=== PATIENT | male | born 1970 | race Caucasian/White ===

== ENCOUNTER 2019-07-13 13:15 | Emergency (ER) | payer SELFPAY ==
--- NOTE | 2019-07-13 13:52 | ER Document Report ---
ED General - General Chief Complaint: Testicular Pain Stated Complaint: TESTICLE PAIN Time Seen by Provider: 07/13/19 13:46 Notes: 48-year-old male presents with intermittent right testicle pain radiating to his buttock/back which began yesterday. It is not worse with position and is not constant. His testicle seems normal to him when he feels it. No masses no swelling. He does have some aches in his inguinal region. No penile discharge. History of committee and gonorrhea years ago. No recent trauma no hernias. Denies hematuria no fevers. He had sex with his partner about a month ago without a condom but has not had sex since. TRAVEL OUTSIDE OF THE [place] IN LAST 30 DAYS: No - Related Data Allergies/Adverse Reactions: brussel sprouts Allergy (Uncoded 07/13/19 13:16) Past Medical History - Social History Smoking Status: Current Every Day Smoker Family History: None Review of Systems - Review of Systems Notes: REVIEW OF SYSTEMS GEN: Denies fever, chills, weight loss ENT: Denies sore throat, nasal discharge, ear pain EYES: Denies blurry vision, eye pain, discharge CV: Denies chest pain, palpitations, edema RESP: Denies cough, shortness of breath, wheezing GI: Denies abdominal pain, nausea, vomiting, diarrhea MSK: Denies joint pain/swelling, edema, SKIN: Denies rash, skin lesions LYMPH: Denies swollen glands/lymph nodes NEURO: Denies headache, focal weakness or numbness, dizziness PSYCH: Denies depression, suicidal or homicidal ideation PHYSICAL EXAMINATION General: No acute distress, well-nourished Head: Atraumatic, normocephalic ENT: Mouth normal, oropharynx moist, no exudates or tonsillar enlargement Eyes: Conjunctiva normal, pupils equal, lids normal Neck: No JVD, supple, no guarding CVS: Normal rate, regular rhythm, no murmurs Resp: No resp distress, equal and normal breath sounds bilaterally GI: Nondistended, soft, no tenderness to palpation, no rebound or guarding : Normal penis normal scrotum. Intact cremasteric reflex. Mild right testicle tenderness, lie is slightly horizontal, but mobile and nontender and the scrotum is normal Ext: No deformities, no edema, normal range of motion in upper and lower ext Back: No CVA or midline TTP Skin: No rash, warm Lymphatic: No lymphadeopathy noted Neuro: Awake, alert. Face symmetric. GCS 15. Physical Exam - Vital signs Vitals: Temp Pulse Resp BP Pulse Ox 98.6 F 99 18 127/78 H 97 07/13/19 13:38 07/13/19 13:38 07/13/19 13:38 07/13/19 13:38 07/13/19 13:38 Course - Re-evaluation Re-evalutation: 07/13/19 14:00 Likely STI/epididymoorchitis, no signs of abscess no signs of erosion no signs of toxicity. Differential would include kidney stone. 07/13/19 15:11 Patient's 20 gonorrhea are pending. He is afebrile. His ultrasound does not show torsion. He is been treated with Rocephin and Zithromax. He will be discharged with STD precautions and follow-up with a primary care. I have discussed with the patient there likely diagnosis, aftercare plan, follow- up plans and my usual and customary return precautions. They verbalized understanding of this. - Vital Signs Vital signs: Temp Pulse Resp BP Pulse Ox 98.6 F 99 18 127/78 H 97 07/13/19 13:38 07/13/19 13:38 07/13/19 13:38 07/13/19 13:38 07/13/19 13:38 - Diagnostic Test Radiology reviewed: Pending Discharge - Discharge Clinical Impression: Testicle pain Condition: Good Disposition: HOME, SELF-CARE Instructions: Testicular Pain ([facility]) Additional Instructions: We are treating you for a sexually transmitted infection just in case. Please follow-up with your primary doctor within 1 week. Please wear brief underwear to support your scrotum, and return to the ER for any worsening pain.
[2019-07-13] MEDS ORDERED: AZITHROMYCIN 1 GM SUSP PACKET PO ONE (14:01)
[2019-07-13] MEDS ORDERED: CEFTRIAXONE INJ 250 MG VIAL IM ONE (14:01)
[2019-07-13] MEDS ORDERED: AZITHROMYCIN 250 MG TABLET PO ONE (14:22)
--- NOTE | 2019-07-13 15:16 | RADIOLOGY REPORT (SQ) ---
EXAM DESCRIPTION: U/S SCROTUM W/DOPPLER COMPLETED DATE/TIME: 07/13/2019 3:02 pm REASON FOR STUDY: r testicle pain COMPARISON: None. TECHNIQUE: Static and realtime jaffe scale imaging of the scrotum and testes. Selected color Doppler and spectral images recorded to document blood flow. LIMITATIONS: None. FINDINGS: RIGHT: TESTICLE: Normal size. Normal echotexture. Normal blood flow. No mass. EPIDIDYMIS: Normal. HYDROCELE OR VARICOCELE: No. HERNIA OR EXTRA-TESTICULAR MASS: No. OTHER: No other significant finding. LEFT: TESTICLE: Normal size. Normal echotexture. Normal blood flow. No mass. EPIDIDYMIS: Normal. HYDROCELE OR VARICOCELE: No. HERNIA OR EXTRA-TESTICULAR MASS: No. OTHER: No other significant finding. IMPRESSION: NORMAL SCROTAL ULTRASOUND. NO EVIDENCE OF TESTICULAR MASS OR TORSION. TECHNICAL DOCUMENTATION: JOB ID: [id number] [employer]- All Rights Reserved Reading location - IP/workstation name: [email or web address]
[2019-07-13 15:31] VITALS: BP 133/80
[2019-07-13 15:40] LABS: CHLAM PCR NOT DETECTED (NOT DETECT)
== END 2019-07-13 15:43 | disposition home or self-care (01) ==
LOC: ER 13:15
DX: N50.811 Right testicular pain (principal); Z20.2 Contact with and (suspected) exposure to infections with a predominantly sexual mode of transmission; F17.200 Nicotine dependence, unspecified, uncomplicated
CPT/HCPCS: 99284; 96374; 87491; 87591; 76870; 93976; J0696

== ENCOUNTER 2019-08-01 23:00 | Inpatient (IN) | payer SELFPAY ==
[2019-08-02] MEDS ORDERED: FENTANYL CITRATE INJ/PF 100 MCG/2 ML AMPUL IV ONE ×3 (04:03→09:24)
[2019-08-02 05:00] LABS: ABSOLUTE BASOPHILS # (AUTO) 0.1 10^3/uL (0.0-0.2); ABSOLUTE EOSINOPHILS # (AUTO) 0.2 10^3/uL (0.0-0.6); ABSOLUTE LYMPHOCYTES (AUTO) 2.2 10^3/uL (0.5-4.7); ABSOLUTE MONOCYTES (AUTO) 1.1 10^3/uL (0.1-1.4); ABSOLUTE NEUT (AUTO) 7.5 10^3/uL (1.7-8.2); BASOPHILS % (AUTO) 0.5 % (0-2); EOSINOPHILS % (AUTO) 1.7 % (0-6); HEMATOCRIT 41.6 % (37.9-51.0); HEMOGLOBIN 14.2 g/dL (13.5-17.0); LYMPHOCYTES % (AUTO) 20.1 % (13-45); MEAN CORPUSCULAR HEMOGLOBIN 30.6 pg (27.0-33.4); MEAN CORPUSCULAR HGB CONC 34.2 g/dL (32.0-36.0); MEAN CORPUSCULAR VOLUME 90 fl (80-97); MONOCYTES % (AUTO) 9.8 % (3-13); PLATELET COUNT 167 10^3/uL (150-450); RED BLOOD COUNT 4.64 10^6/uL (4.35-5.55); RED CELL DISTRIBUTION WIDTH 13.7 % (11.5-14.0); SEGMENTED NEUTROPHILS % (AUTO) 67.9 % (42-78); TOTAL CELLS COUNTED % (AUTO) 100 %; WHITE BLOOD COUNT 11.1 10^3/uL (4.0-10.5)
[2019-08-02 05:19] LABS: ALBUMIN 4.2 g/dL (3.5-5.0); ALKALINE PHOSPHATASE 59 U/L (38-126); ANION GAP 8 (5-19); ASPARTATE AMINO TRANSFERASE 17 U/L (17-59); BILIRUBIN,DIRECT 0.1 mg/dL (0.0-0.4); BILIRUBIN,TOTAL 0.6 mg/dL (0.2-1.3); BLOOD UREA NITROGEN 14 mg/dL (7-20); CALCIUM 9.5 mg/dL (8.4-10.2); CARBON DIOXIDE 28 mmol/L (22-30); CHLORIDE 103 mmol/L (98-107); GLUCOSE 113 mg/dL (75-110); POTASSIUM 4.2 mmol/L (3.6-5.0); TOTAL PROTEIN 7.3 g/dL (6.3-8.2)
[2019-08-02] MEDS ORDERED: CLINDAMYCIN 600 MG/D5W RTU 600 MG/50 ML RTUPB IV ONE (05:34)
--- NOTE | 2019-08-02 06:59 | ER Document Report ---
ED Extremity Problem, Lower - General TRAVEL OUTSIDE OF THE [place] IN LAST 30 DAYS: No <DIANDRA ANDERS - Last Filed: 08/02/19 07:58> <OBDULIOISSAC - Last Filed: 08/02/19 10:06> - General Chief Complaint: Leg Pain Stated Complaint: LEFT LEG SWELLING Time Seen by Provider: 08/02/19 03:53 Notes: Patient is a 48-year-old male presents to the emergency department with left lower extremity redness, swelling, pain. Patient voices he has generalized swelling and redness noted to the left lower extremity for the last 2 days. Patient also complaining of generalized left calf pain. States it hurts more when he flexes and extends his left ankle. Patient's denying any injury to his left lower extremity. Past medical history: None medications: None Allergies: None (DIANDRA ANDERS) - Related Data Allergies/Adverse Reactions: brussel sprouts Allergy (Uncoded 07/13/19 13:16) Past Medical History - General Information source: Patient - Social History Smoking Status: Current Every Day Smoker Chew tobacco use (# tins/day): No Frequency of alcohol use: Social Drug Abuse: Marijuana Family History: None Patient has suicidal ideation: No Patient has homicidal ideation: No <DIANDRA ANDERS - Last Filed: 08/02/19 07:58> Review of Systems - Review of Systems Constitutional: denies: Fever EENT: No symptoms reported Cardiovascular: No symptoms reported Respiratory: No symptoms reported Gastrointestinal: No symptoms reported Genitourinary: No symptoms reported Male Genitourinary: No symptoms reported Musculoskeletal: See HPI Skin: See HPI Hematologic/Lymphatic: denies: Blood clots Neurological/Psychological: No symptoms reported <DIANDRA ANDERS - Last Filed: 08/02/19 07:58> Physical Exam <DIANDRA ANDERS - Last Filed: 08/02/19 07:58> - Vital signs Vitals: Temp Pulse Resp BP Pulse Ox 98.8 F 97 17 137/84 H 96 08/01/19 23:26 08/01/19 23:26 08/01/19 23:26 08/01/19 23:26 08/01/19 23:26 - Notes Notes: GENERAL: Alert, interacts well. No acute distress. HEAD: Normocephalic, atraumatic. EYES: Pupils equal, round, and reactive to light. Extraocular movements intact. ENT: Oral mucosa moist, tongue midline. NECK: Full range of motion. Supple. Trachea midline. LUNGS: Clear to auscultation bilaterally, no wheezes, rales, or rhonchi. No respiratory distress. HEART: Regular rate and rhythm. No murmur ABDOMEN: Soft, non-tender. Non-distended. Bowel sounds present in all 4 quadrants. EXTREMITIES: Moves all 4 extremities spontaneously. normal radial and dorsalis pedis pulses bilaterally. No cyanosis. Generalized swelling, erythema noted left lower extremity. Significant pain upon palpation left calf. BACK: no cervical, thoracic, lumbar midline tenderness. No saddle anesthesia, normal distal neurovascular exam. NEUROLOGICAL: Alert and oriented x3. Normal speech. cranial nerves II through XII grossly intact PSYCH: Normal affect, normal mood. SKIN: Warm, dry, normal turgor. Multiple superficial abrasions noted left lower extremity, erythema noted left lower acuna and ankle, noncircumferential. (DIANDRA ANDERS) Course - Laboratory Result Diagrams: 08/02/19 04:40 08/02/19 04:40 <DIANDRA ANDERS - Last Filed: 08/02/19 07:58> - Laboratory Result Diagrams: 08/02/19 04:40 08/02/19 04:40 <ISSAC MAK - Last Filed: 08/02/19 10:06> - Re-evaluation Re-evalutation: 08/02/19 06:58 I discussed with patient at length I do feel as though this is infectious nature. I discussed use of antibiotics. Based on patient's complaint of generalized calf pain I have discussed venous Doppler. I voiced to patient we do not have access to the venous Doppler until 8 AM. I have discussed drawing routine blood in order to check for generalized infection, treated with IV antibiotics and awaiting results of venous Doppler. Patient agrees to treatment plan. 08/02/19 07:58 Pt. care and report transferred Tommie Ortiz PA-C for continued care. (DIANDRA RIZO) 08/02/19 10:04 I accepted the patient from just Nancy Woolbright, PA-C. Ultrasound showed a left lower extremity proximal DVT of the common femoral vein, popliteal vein, and the PT V. I called [facility] CREDIT REVIEW ANALYST, who accepted the patient for anticoagulation for full admission. I briefly spoke with Dr. Danielle Bailey, casting operator helper, who stated that outpatient therapy would be appropriate if the patient could afford the medications, but if the patient was not able to then it is reasonable to admit him for anticoagulation. (ISSAC MAK) - Vital Signs Vital signs: Temp Pulse Resp BP Pulse Ox 97.9 F 63 16 140/73 H 99 08/02/19 06:54 08/02/19 08:44 08/02/19 08:44 08/02/19 08:44 08/02/19 08:44 - Laboratory Laboratory results interpreted by me: 08/02/19 08/02/19 04:40 04:40 WBC 11.1 H Glucose 113 H Discharge <DIANDRA ANDERS - Last Filed: 08/02/19 07:58> - Discharge Admitting Provider: Dimitris (Hospitalist) Unit Admitted: Medical Floor <ISSAC MAK - Last Filed: 08/02/19 10:06> - Discharge Clinical Impression: Dvt femoral (deep venous thrombosis) Qualifiers: Chronicity: acute Laterality: left Qualified Code(s): I82.412 - Acute embolism and thrombosis of left femoral vein DVT, popliteal, acute Qualifiers: Laterality: left Qualified Code(s): I82.432 - Acute embolism and thrombosis of left popliteal vein Condition: Stable Disposition: ADMITTED INPATIENT
--- NOTE | 2019-08-02 07:18 | RADIOLOGY REPORT (SQ) ---
EXAM DESCRIPTION: Left tib-fib RadLex: XR TIBIA FIBULA 2 VIEWS Views: 2 CLINICAL HISTORY: 48 years Male, pain/swelling COMPARISON: None. FINDINGS: Negative for acute fracture, dislocation, or radiopaque foreign body. No lytic bone changes or periosteal reaction. No soft tissue air. IMPRESSION: 1. No acute findings.
[2019-08-02] MEDS ORDERED: MAG HYDROX/AL HYDROX/SIMETH SUSP 30 ML UDCUP PO PRN (10:21)
[2019-08-02] MEDS ORDERED: HYDROMORPHONE HCL INJ/PF 2 MG/ML AMPULE IV ONE (10:21)
[2019-08-02] MEDS ORDERED: ONDANSETRON HCL INJ/PF 4 MG/2 ML SDV IV PRN (10:21)
--- NOTE | 2019-08-02 10:22 | RADIOLOGY REPORT (SQ) ---
EXAM DESCRIPTION: VENOUS UNILATERAL LOWER COMPLETED DATE/TIME: 08/02/2019 9:55 am REASON FOR STUDY: left calf pain/swelling COMPARISON: None. TECHNIQUE: Dynamic and static jaffe scale and color images acquired of the left leg venous system. Se lected spectral images acquired with additional compression and augmentation maneuvers. The contralat eral common femoral vein and saphenofemoral junction were also imaged. Images stored on PACS. LIMITATIONS: None. FINDINGS: LEFT COMMON FEMORAL: Normal phasicity, compression and augmentation. No visualized echogen ic material on jaffe scale. No defects on color images. LEFT FEMORAL: Absence of normal compressibility and augmentation in the mid and distal femoral vein. Echogenic material within the lumen of the mid and distal left femoral vein. LEFT POPLITEAL: Lack of compressibility and lack of augmentation. Echogenic material within the lum en of the left popliteal vein noted. No defects on color images. LEFT CALF VESSELS: Lack of compressibility and lack augmented. Echogenic material within the lumen o f the posterior tibial vein. GSV and SSV :Lack of compressibility of the SSV. Echogenic material noted within the SSV ANY DEEP VENOUS INSUFFICIENCY: Not evaluated. ANY EVIDENCE OF POPLITEAL CYST: No. OTHER: No other significant finding. RIGHT COMMON FEMORAL VEIN AND SAPHENOFEMORAL JUNCTION: Normal phasicity, compression and augmentation. No visualized echogenic material on jaffe scale. No de fects on color images. IMPRESSION: Evidence of acute deep vein thrombosis from the mid femoral vein to the posterior tibial vein. Evidence a superficial vein thrombosis left lower leg. COMMENT: The report was called to the LAZ Leija in the emergency room. TECHNICAL DOCUMENTATION: JOB ID: [id number] [employer]- All Rights Reserved Reading location - IP/workstation name: [email or web address]
[2019-08-02] MEDS ORDERED: HEPARIN SOD (PORCINE) 1,000 UNIT/ML 10 ML VIAL IV ONE (10:24)
--- NOTE | 2019-08-02 10:33 | PDOC H&P ---
History of Present Illness Admission Date/PCP: 08/02/2019 No primary care Patient complains of: Left lower leg pain History of Present Illness: RIC BANEGAS is a 48 year old male who presented to the ER with complaint of left lower extremity redness and swelling associated pain. Patient is noted this swelling been present for the last 2 to 3 days. Patient states it hurts more when he flexes or extends his left ankle showing a positive Homans sign. Patient had no treatment prior to arrival all activity is aggravating factor Past Medical History Medical History: None Past Surgical History Past Surgical History: Reports: None Social History Information Source: Patient Lives with: Family Smoking Status: Current Every Day Smoker Frequency of Alcohol Use: Occasional Hx Recreational Drug Use: Yes Drugs: Marijuana Hx Prescription Drug Abuse: No - Advance Directive Resuscitation Status: Full Code Family History Family History: CAD, CVA, DM, Hypertension Parental Family History Reviewed: Yes Children Family History Reviewed: Yes Sibling(s) Family History Reviewed.: Yes Medication/Allergy Allergies/Adverse Reactions: brussel sprouts Allergy (Uncoded 07/13/19 13:16) Review of Systems Constitutional: ABSENT: chills, fever(s), headache(s), weight gain, weight loss Eyes: ABSENT: visual disturbances Ears: ABSENT: hearing changes Cardiovascular: ABSENT: chest pain, dyspnea on exertion, edema, orthropnea, palpitations Respiratory: ABSENT: cough, hemoptysis Gastrointestinal: ABSENT: abdominal pain, constipation, diarrhea, hematemesis, hematochezia, nausea, vomiting Genitourinary: ABSENT: dysuria, hematuria Musculoskeletal: PRESENT: other - Right lower extremity pain, swelling, redness. ABSENT: joint swelling Integumentary: ABSENT: rash, wounds Neurological: ABSENT: abnormal gait, abnormal speech, confusion, dizziness, focal weakness, syncope Psychiatric: ABSENT: anxiety, depression, homidical ideation, suicidal ideation Endocrine: ABSENT: cold intolerance, heat intolerance, polydipsia, polyuria Hematologic/Lymphatic: ABSENT: easy bleeding, easy bruising Physical Exam Vital Signs: Temp Pulse Resp BP Pulse Ox 97.9 F 63 16 140/73 H 99 08/02/19 06:54 08/02/19 08:44 08/02/19 08:44 08/02/19 08:44 08/02/19 08:44 Intake & Output 08/01/19 08/02/19 08/03/19 06:59 06:59 06:59 Intake Total 50 Balance 50 Weight 97.522 kg General appearance: PRESENT: no acute distress, well-developed, well-nourished Head exam: PRESENT: atraumatic, normocephalic Eye exam: PRESENT: conjunctiva pink, EOMI, PERRLA. ABSENT: scleral icterus Ear exam: PRESENT: normal external ear exam Mouth exam: PRESENT: moist, tongue midline Neck exam: ABSENT: carotid bruit, JVD, lymphadenopathy, thyromegaly Respiratory exam: PRESENT: clear to auscultation hussain. ABSENT: rales, rhonchi, wheezes Cardiovascular exam: PRESENT: RRR. ABSENT: diastolic murmur, rubs, systolic murmur Pulses: PRESENT: normal dorsalis pedis pul Vascular exam: PRESENT: normal capillary refill GI/Abdominal exam: PRESENT: normal bowel sounds, soft. ABSENT: distended, guarding, mass, organolmegaly, rebound, tenderness Rectal exam: PRESENT: deferred Extremities exam: PRESENT: calf tenderness - Left lower extremity pain, swelling, redness, full ROM, other. ABSENT: clubbing, pedal edema Neurological exam: PRESENT: alert, awake, oriented to person, oriented to place, oriented to time, oriented to situation, CN II-XII grossly intact. ABSENT: motor sensory deficit Psychiatric exam: PRESENT: appropriate affect, normal mood. ABSENT: homicidal ideation, suicidal ideation Skin exam: PRESENT: dry, intact, warm. ABSENT: cyanosis, rash Results Laboratory Results: 08/02/19 04:40 08/02/19 04:40 08/02/19 08/02/19 04:40 04:40 WBC 11.1 H RBC 4.64 Hgb 14.2 Hct 41.6 MCV 90 MCH 30.6 MCHC 34.2 RDW 13.7 Plt Count 167 Seg Neutrophils % 67.9 Sodium 138.9 Potassium 4.2 Chloride 103 Carbon Dioxide 28 Anion Gap 8 BUN 14 Creatinine 0.88 Est GFR ( Amer) > 60 Glucose 113 H Calcium 9.5 Total Bilirubin 0.6 AST 17 Alkaline Phosphatase 59 Total Protein 7.3 Albumin 4.2 Impressions: Venous Doppler Study 08/02/19 04:03 IMPRESSION: Evidence of acute deep vein thrombosis from the mid femoral vein to the posterior tibial vein. Evidence a superficial vein thrombosis left lower leg. Tibia/Fibula X-Ray 08/02/19 05:33 IMPRESSION: 1. No acute findings. Assessment and Plan - Diagnosis (1) Dvt femoral (deep venous thrombosis) Qualifiers: Chronicity: acute Laterality: left Qualified Code(s): I82.412 - Acute embolism and thrombosis of left femoral vein Is this a current diagnosis for this admission?: Yes Plan: 08/02/2019-at this time admit to medical surgical floor. Heparin drip and start Coumadin 10 mg p.o. daily. Will obtain a INR daily until patient has a therapeutic Coumadin value. At which time we will stop heparin and place patient on Coumadin for home as well as pain control. (2) Pain Is this a current diagnosis for this admission?: Yes Plan: 08/02/2019-Dilaudid 1 mg IV every 3 hours as needed and Percocet 5 mg 1 p.o. every 4 hours PRN pain (3) Tobacco abuse Is this a current diagnosis for this admission?: Yes Plan: Continue to educate about the positive benefits of tobacco cessation (4) Marijuana abuse Is this a current diagnosis for this admission?: Yes Plan: 08/02/2019-continue to educate about the positive benefits of marijuana cessation - Time Time Spent with patient: 35 or more minutes
[2019-08-02 10:54] LABS: INTERNATIONAL RATION (INR) 1.07
[2019-08-02 10:55] LABS: PARTIAL THROMBOPLASTIN TIME 30.1 SEC (23.5-35.8)
[2019-08-02] MEDS: OXYCODONE-ACETAMINOPHEN 5-325 MG TABLET PO PRN (11:13)
[2019-08-02] MEDS: HEPARIN SODIUM,PORCINE/D5W 25,000 UNIT/250 ML RTUINJ IV PRN ×2 (11:30→20:15)
[2019-08-02 11:42] LABS: ABSOLUTE BASOPHILS # (AUTO) 0.1 10^3/uL (0.0-0.2); ABSOLUTE EOSINOPHILS # (AUTO) 0.2 10^3/uL (0.0-0.6); ABSOLUTE LYMPHOCYTES (AUTO) 1.9 10^3/uL (0.5-4.7); ABSOLUTE MONOCYTES (AUTO) 0.8 10^3/uL (0.1-1.4); ABSOLUTE NEUT (AUTO) 8.6 10^3/uL (1.7-8.2); BASOPHILS % (AUTO) 0.7 % (0-2); EOSINOPHILS % (AUTO) 1.3 % (0-6); HEMATOCRIT 41.2 % (37.9-51.0); LYMPHOCYTES % (AUTO) 16.4 % (13-45); MEAN CORPUSCULAR HEMOGLOBIN 30.5 pg (27.0-33.4); MEAN CORPUSCULAR VOLUME 90 fl (80-97); MONOCYTES % (AUTO) 6.9 % (3-13); PLATELET COUNT 161 10^3/uL (150-450); RED BLOOD COUNT 4.59 10^6/uL (4.35-5.55); SEGMENTED NEUTROPHILS % (AUTO) 74.7 % (42-78); TOTAL CELLS COUNTED % (AUTO) 100 %; WHITE BLOOD COUNT 11.6 10^3/uL (4.0-10.5)
[2019-08-02] MEDS: HYDROMORPHONE HCL INJ/PF 2 MG/ML AMPULE IV PRN ×2 (16:50→20:15)
[2019-08-02] MEDS: ACETAMINOPHEN 325 MG TABLET PO PRN (18:40)
[2019-08-02] MEDS ORDERED: WARFARIN SODIUM 5 MG TABLET PO SCH (22:00)
[2019-08-03] MEDS: HYDROMORPHONE HCL INJ/PF 2 MG/ML AMPULE IV PRN ×5 (00:38→19:50)
[2019-08-03] MEDS: HEPARIN SODIUM,PORCINE/D5W 25,000 UNIT/250 ML RTUINJ IV PRN ×4 (02:37→16:35)
[2019-08-03] MEDS: OXYCODONE-ACETAMINOPHEN 5-325 MG TABLET PO PRN ×3 (02:41→12:31)
[2019-08-03 06:09] LABS: ABSOLUTE BASOPHILS # (AUTO) 0.1 10^3/uL (0.0-0.2); ABSOLUTE EOSINOPHILS # (AUTO) 0.2 10^3/uL (0.0-0.6); ABSOLUTE LYMPHOCYTES (AUTO) 1.9 10^3/uL (0.5-4.7); ABSOLUTE MONOCYTES (AUTO) 1.2 10^3/uL (0.1-1.4); ABSOLUTE NEUT (AUTO) 7.8 10^3/uL (1.7-8.2); BASOPHILS % (AUTO) 0.8 % (0-2); EOSINOPHILS % (AUTO) 2.2 % (0-6); HEMATOCRIT 40.4 % (37.9-51.0); HEMOGLOBIN 13.8 g/dL (13.5-17.0); LYMPHOCYTES % (AUTO) 16.8 % (13-45); MEAN CORPUSCULAR HEMOGLOBIN 30.7 pg (27.0-33.4); MEAN CORPUSCULAR HGB CONC 34.1 g/dL (32.0-36.0); MEAN CORPUSCULAR VOLUME 90 fl (80-97); MONOCYTES % (AUTO) 10.3 % (3-13); PLATELET COUNT 182 10^3/uL (150-450); RED BLOOD COUNT 4.49 10^6/uL (4.35-5.55); RED CELL DISTRIBUTION WIDTH 13.7 % (11.5-14.0); SEGMENTED NEUTROPHILS % (AUTO) 69.9 % (42-78); TOTAL CELLS COUNTED % (AUTO) 100 %; WHITE BLOOD COUNT 11.2 10^3/uL (4.0-10.5)
[2019-08-03 06:23] LABS: INTERNATIONAL RATION (INR) 0.99; PROTHROMBIN TIME 13.1 SEC (11.4-15.4)
[2019-08-03 06:24] LABS: PARTIAL THROMBOPLASTIN TIME 54.2 SEC (23.5-35.8)
[2019-08-03 06:30] LABS: ANION GAP 9 (5-19); BLOOD UREA NITROGEN 15 mg/dL (7-20); CALCIUM 8.6 mg/dL (8.4-10.2); CARBON DIOXIDE 27 mmol/L (22-30); CHLORIDE 98 mmol/L (98-107); GLUCOSE 113 mg/dL (75-110); POTASSIUM 4.3 mmol/L (3.6-5.0)
[2019-08-03] MEDS ORDERED: HEPARIN SOD (PORCINE) 1,000 UNIT/ML 10 ML VIAL ONE (06:41)
--- NOTE | 2019-08-03 08:54 | PDOC PROGRESS REPORT ---
Subjective Progress Note for:: 08/03/19 Subjective:: No complaints this a.m. Reason For Visit: LEFT LOWER EXTREMITY DVT Physical Exam Vital Signs: Temp Pulse Resp BP Pulse Ox 98.6 F 93 17 135/69 H 95 08/02/19 20:00 08/02/19 20:00 08/02/19 20:00 08/02/19 20:00 08/02/19 20:00 Intake & Output 08/02/19 08/03/19 08/04/19 06:59 06:59 06:59 Intake Total 1147 Output Total 220 Balance 927 Weight 97.522 kg 96.2 kg General appearance: PRESENT: no acute distress, well-developed, well-nourished Head exam: PRESENT: atraumatic, normocephalic Eye exam: PRESENT: conjunctiva pink, EOMI, PERRLA. ABSENT: scleral icterus Ear exam: PRESENT: normal external ear exam Mouth exam: PRESENT: moist, tongue midline Neck exam: ABSENT: carotid bruit, JVD, lymphadenopathy, thyromegaly Respiratory exam: PRESENT: clear to auscultation hussain. ABSENT: rales, rhonchi, wheezes Cardiovascular exam: PRESENT: RRR. ABSENT: diastolic murmur, rubs, systolic murmur Pulses: PRESENT: normal dorsalis pedis pul Vascular exam: PRESENT: normal capillary refill GI/Abdominal exam: PRESENT: normal bowel sounds, soft. ABSENT: distended, g uarding, mass, organolmegaly, rebound, tenderness Rectal exam: PRESENT: deferred Extremities exam: PRESENT: full ROM, pedal edema - Swelling of the left lower extremity from knee to the ankle and erythema, other. ABSENT: calf tenderness, clubbing Neurological exam: PRESENT: alert, awake, oriented to person, oriented to place, oriented to time, oriented to situation, CN II-XII grossly intact. ABSENT: motor sensory deficit Psychiatric exam: PRESENT: appropriate affect, normal mood. ABSENT: homicidal ideation, suicidal ideation Skin exam: PRESENT: dry, intact, warm. ABSENT: cyanosis, rash Results Laboratory Results: 08/03/19 05:07 08/03/19 05:07 08/02/19 08/03/19 08/03/19 11:26 05:07 05:07 WBC 11.6 H 11.2 H RBC 4.59 4.49 Hgb 14.0 13.8 Hct 41.2 40.4 MCV 90 90 MCH 30.5 30.7 MCHC 34.0 34.1 RDW 14.0 13.7 Plt Count 161 182 Seg Neutrophils % 74.7 69.9 Sodium 134.4 L Potassium 4.3 Chloride 98 Carbon Dioxide 27 Anion Gap 9 BUN 15 Creatinine 0.79 Est GFR ( Amer) > 60 Glucose 113 H Calcium 8.6 Impressions: Venous Doppler Study 08/02/19 04:03 IMPRESSION: Evidence of acute deep vein thrombosis from the mid femoral vein to the posterior tibial vein. Evidence a superficial vein thrombosis left lower leg. Tibia/Fibula X-Ray 08/02/19 05:33 IMPRESSION: 1. No acute findings. Assessment and Plan - Diagnosis (1) Dvt femoral (deep venous thrombosis) Qualifiers: Chronicity: acute Laterality: left Qualified Code(s): I82.412 - Acute embolism and thrombosis of left femoral vein Is this a current diagnosis for this admission?: Yes Plan: 08/02/2019-at this time admit to medical surgical floor. Heparin drip and start Coumadin 10 mg p.o. daily. Will obtain a INR daily until patient has a therapeutic Coumadin value. At which time we will stop heparin and place patient on Coumadin for home as well as pain control. 08/03/2019-continue heparin drip and Coumadin dosing until INR therapeutic (2) Pain Is this a current diagnosis for this admission?: Yes Plan: 08/02/2019-Dilaudid 1 mg IV every 3 hours as needed and Percocet 5 mg 1 p.o. every 4 hours PRN pain 08/03/2019-continue Dilaudid and Percocet. (3) Tobacco abuse Is this a current diagnosis for this admission?: Yes Plan: Continue to educate about the positive benefits of tobacco cessation 08/03/2019-continue education about tobacco cessation (4) Marijuana abuse Is this a current diagnosis for this admission?: Yes Plan: 08/02/2019-continue to educate about the positive benefits of marijuana cessation 08/03/2019-continue education about marijuana cessation - Time Time Spent with patient: 15-24 minutes - Inpatient Certification Based on my medical assessment, after consideration of the patient's co morbidities, presenting symptoms, or acuity I expect that the services needed warrant INPATIENT care.: Yes I certify that my determination is in accordance with my understanding of Medicare's requirements for reasonable and necessary INPATIENT services [42 CFR 412.3e].: Yes Medical Necessity: Other - IV heparin
[2019-08-03 11:19] LABS: APPEARANCE,URINE CLEAR; BILIRUBIN,URINE NEGATIVE (NEGATIVE); COLOR,URINE YELLOW; GLUCOSE, URINE NEGATIVE (NEGATIVE); KETONES,URINE NEGATIVE (NEGATIVE); LEUKOCYTE ESTERASE,URINE NEGATIVE (NEGATIVE); NITRITE,URINE NEGATIVE (NEGATIVE); PROTEIN,URINE NEGATIVE (NEGATIVE); URINE SPECIFIC GRAVITY 1.023
[2019-08-03] MEDS: HEPARIN SOD (PORCINE) 1,000 UNIT/ML 10 ML VIAL IV PRN (14:07)
[2019-08-03] MEDS: LORAZEPAM INJ 2 MG/1 ML VIAL IV PRN ×2 (15:23→19:45)
[2019-08-03] MEDS: WARFARIN SODIUM 7.5 MG TABLET PO SCH (21:56)
[2019-08-04] MEDS: OXYCODONE-ACETAMINOPHEN 5-325 MG TABLET PO PRN ×3 (03:50→23:36)
[2019-08-04] MEDS: HEPARIN SODIUM,PORCINE/D5W 25,000 UNIT/250 ML RTUINJ IV PRN ×2 (05:28→17:52)
[2019-08-04] MEDS: HYDROMORPHONE HCL INJ/PF 2 MG/ML AMPULE IV PRN ×3 (06:39→20:15)
[2019-08-04 07:22] LABS: INTERNATIONAL RATION (INR) 1.03; PROTHROMBIN TIME 13.5 SEC (11.4-15.4)
[2019-08-04] MEDS: LORAZEPAM INJ 2 MG/1 ML VIAL IV PRN ×4 (09:00→23:36)
[2019-08-04] MEDS: HEPARIN SOD (PORCINE) 1,000 UNIT/ML 10 ML VIAL IV PRN (10:51)
--- NOTE | 2019-08-04 16:54 | PDOC PROGRESS REPORT ---
Subjective Progress Note for:: 08/04/19 Subjective:: No adverse events overnight. No new complaints. Vital signs been stable. He said he thinks the swelling is gone down a little bit in his left leg. Eating and drinking without difficulty. Reason For Visit: LEFT LOWER EXTREMITY DVT Physical Exam Vital Signs: Temp Pulse Resp BP Pulse Ox 98.5 F 96 16 140/82 H 95 08/04/19 08:16 08/04/19 08:16 08/03/19 23:17 08/04/19 08:16 08/04/19 08:16 Intake & Output 08/03/19 08/04/19 08/05/19 06:59 06:59 06:59 Intake Total 1147 2110 Output Total 220 1785 Balance 927 325 Weight 96.2 kg 98.6 kg General appearance: PRESENT: no acute distress, cooperative, disheveled Respiratory exam: PRESENT: clear to auscultation hussain, symmetrical, unlabored. ABSENT: accessory muscle use, chest wall tenderness, crackles, prolonged expiratory phas, rhonchi, tachypnea, wheezes Cardiovascular exam: PRESENT: RRR, +S1, +S2 Pulses: PRESENT: normal carotid pulses Vascular exam: PRESENT: normal capillary refill GI/Abdominal exam: PRESENT: normal bowel sounds, soft. ABSENT: distended, guarding, rebound, tenderness Extremities exam: ABSENT: clubbing, pedal edema Musculoskeletal exam: PRESENT: normal inspection. ABSENT: deformity Neurological exam: PRESENT: alert, awake, oriented to person, oriented to place, oriented to time, oriented to situation Psychiatric exam: PRESENT: appropriate affect, normal mood Skin exam: PRESENT: dry, warm Results Laboratory Results: 08/03/19 05:07 08/03/19 05:07 Impressions: Venous Doppler Study 08/02/19 04:03 IMPRESSION: Evidence of acute deep vein thrombosis from the mid femoral vein to the posterior tibial vein. Evidence a superficial vein thrombosis left lower leg. Tibia/Fibula X-Ray 08/02/19 05:33 IMPRESSION: 1. No acute findings. Assessment and Plan - Diagnosis (1) DVT, popliteal, acute Qualifiers: Laterality: left Qualified Code(s): I82.432 - Acute embolism and thrombosis of left popliteal vein Is this a current diagnosis for this admission?: Yes Plan: Because he does not have insurance he cannot afford the Eliquis so we are starting him on Coumadin and have him on a heparin drip until his INR is therap eutic (2) Tobacco abuse Is this a current diagnosis for this admission?: Yes Plan: Strongly encourage cessation - Time Time Spent with patient: 15-24 minutes
[2019-08-04] MEDS: WARFARIN SODIUM 7.5 MG TABLET PO SCH (21:25)
[2019-08-05 04:21] LABS: APPEARANCE,URINE CLEAR; BILIRUBIN,URINE NEGATIVE (NEGATIVE); COLOR,URINE YELLOW; GLUCOSE, URINE NEGATIVE (NEGATIVE); KETONES,URINE NEGATIVE (NEGATIVE); LEUKOCYTE ESTERASE,URINE NEGATIVE (NEGATIVE); NITRITE,URINE NEGATIVE (NEGATIVE); PROTEIN,URINE NEGATIVE (NEGATIVE); URINE SPECIFIC GRAVITY 1.012; UROBILINOGEN,URINE NEGATIVE mg/dL (<2.0)
[2019-08-05] MEDS: HEPARIN SODIUM,PORCINE/D5W 25,000 UNIT/250 ML RTUINJ IV PRN ×2 (04:50→15:59)
[2019-08-05 08:07] LABS: INTERNATIONAL RATION (INR) 1.11; PROTHROMBIN TIME 14.3 SEC (11.4-15.4)
[2019-08-05 08:09] LABS: PARTIAL THROMBOPLASTIN TIME 92.6 SEC (23.5-35.8)
[2019-08-05] MEDS: LORAZEPAM INJ 2 MG/1 ML VIAL IV PRN (08:45)
[2019-08-05] MEDS: HYDROMORPHONE HCL INJ/PF 2 MG/ML AMPULE IV PRN (11:28)
[2019-08-05] MEDS ORDERED: LORAZEPAM INJ 2 MG/1 ML VIAL IV PRN (13:11)
[2019-08-05] MEDS: OXYCODONE-ACETAMINOPHEN 5-325 MG TABLET PO PRN ×3 (13:17→22:05)
--- NOTE | 2019-08-05 17:54 | PDOC PROGRESS REPORT ---
Subjective Progress Note for:: 08/05/19 Subjective:: No adverse events overnight. He is been asking for his pain medication a lot. He has Percocet and Dilaudid ordered. This is strange considering the fact that he is got good perfusion in the foot and that the swelling has gone down his left leg. He is been eating and drinking without difficulty. Reason For Visit: LEFT LOWER EXTREMITY DVT Physical Exam Vital Signs: Temp Pulse Resp BP Pulse Ox 98.8 F 95 18 142/76 H 98 08/05/19 15:34 08/05/19 15:34 08/05/19 15:34 08/05/19 15:34 08/05/19 15:34 Intake & Output 08/04/19 08/05/19 08/06/19 06:59 06:59 06:59 Intake Total 2110 1550 1202 Output Total 1785 1550 700 Balance 325 0 502 Weight 98.6 kg 97.8 kg General appearance: PRESENT: no acute distress, cooperative, disheveled Respiratory exam: PRESENT: clear to auscultation hussain, symmetrical, unlabored. ABSENT: accessory muscle use, chest wall tenderness, crackles, prolonged ex piratory phas, rhonchi, tachypnea, wheezes Cardiovascular exam: PRESENT: RRR, +S1, +S2 Pulses: PRESENT: normal carotid pulses Vascular exam: PRESENT: normal capillary refill GI/Abdominal exam: PRESENT: normal bowel sounds, soft. ABSENT: distended, guarding, rebound, tenderness Extremities exam: ABSENT: clubbing, pedal edema Musculoskeletal exam: PRESENT: normal inspection. ABSENT: deformity Neurological exam: PRESENT: alert, awake, oriented to person, oriented to place, oriented to time, oriented to situation Psychiatric exam: PRESENT: appr Results Laboratory Results: 08/03/19 05:07 08/03/19 05:07 08/05/19 03:58 Urine Color YELLOW Urine Appearance CLEAR Urine pH 6.0 Ur Specific Melba 1.012 Urine Protein NEGATIVE Urine Glucose (UA) NEGATIVE Urine Ketones NEGATIVE Urine Blood NEGATIVE Urine Nitrite NEGATIVE Ur Leukocyte Esterase NEGATIVE Urine WBC (Auto) 0 Urine RBC (Auto) 0 Impressions: Venous Doppler Study 08/02/19 04:03 IMPRESSION: Evidence of acute deep vein thrombosis from the mid femoral vein to the posterior tibial vein. Evidence a superficial vein thrombosis left lower leg. Tibia/Fibula X-Ray 08/02/19 05:33 IMPRESSION: 1. No acute findings. Assessment and Plan - Diagnosis (1) DVT, popliteal, acute Qualifiers: Laterality: left Qualified Code(s): I82.432 - Acute embolism and thrombosis of left popliteal vein Is this a current diagnosis for this admission?: Yes Plan: Because he does not have insurance he cannot afford the Eliquis so we are starting him on Coumadin and have him on a heparin drip until his INR is therapeutic. If his INR does not start to trend up a little more by tomorrow, I am going to increase his warfarin. (2) Tobacco abuse Is this a current diagnosis for this admission?: Yes Plan: Strongly encourage cessation - Time Time Spent with patient: 15-24 minutes
[2019-08-05] MEDS ORDERED: WARFARIN SODIUM 5 MG TABLET PO SCH (22:00)
[2019-08-05] MEDS: ZOLPIDEM TARTRATE 5 MG TABLET PO PRN (22:06)
[2019-08-06] MEDS: HEPARIN SODIUM,PORCINE/D5W 25,000 UNIT/250 ML RTUINJ IV PRN ×3 (01:32→17:36)
[2019-08-06] MEDS: OXYCODONE-ACETAMINOPHEN 5-325 MG TABLET PO PRN ×4 (02:31→19:15)
[2019-08-06] MEDS: ACETAMINOPHEN 325 MG TABLET PO PRN (02:59)
[2019-08-06 04:44] LABS: HEMATOCRIT 39.6 % (37.9-51.0); HEMOGLOBIN 13.7 g/dL (13.5-17.0); MEAN CORPUSCULAR HEMOGLOBIN 30.7 pg (27.0-33.4); MEAN CORPUSCULAR HGB CONC 34.6 g/dL (32.0-36.0); MEAN CORPUSCULAR VOLUME 89 fl (80-97); PLATELET COUNT 244 10^3/uL (150-450); RED BLOOD COUNT 4.47 10^6/uL (4.35-5.55); RED CELL DISTRIBUTION WIDTH 13.6 % (11.5-14.0); WHITE BLOOD COUNT 9.1 10^3/uL (4.0-10.5)
[2019-08-06 04:58] LABS: INTERNATIONAL RATION (INR) 1.22; PROTHROMBIN TIME 15.5 SEC (11.4-15.4)
[2019-08-06 05:01] LABS: PARTIAL THROMBOPLASTIN TIME 130.5 SEC (23.5-35.8)
--- NOTE | 2019-08-06 17:40 | PDOC PROGRESS REPORT ---
Subjective Progress Note for:: 08/06/19 Subjective:: No adverse events overnight. No new complaints. Vital signs been stable. Eating and drinking without difficulty. Was not complaining of any pain today. Reason For Visit: LEFT LOWER EXTREMITY DVT Physical Exam Vital Signs: Temp Pulse Resp BP Pulse Ox 98.5 F 89 16 127/83 H 99 08/06/19 15:08 08/06/19 15:08 08/06/19 15:08 08/06/19 15:08 08/06/19 15:08 Intake & Output 08/05/19 08/06/19 08/07/19 06:59 06:59 06:59 Intake Total 1550 3105 869 Output Total 1550 900 375 Balance 0 2205 494 Weight 97.8 kg 95.9 kg General appearance: PRESENT: no acute distress, cooperative, disheveled Respiratory exam: PRESENT: clear to auscultation hussain, symmetrical, unlabored. ABSENT: accessory muscle use, chest wall tenderness, crackles, prolonged expiratory phas, rhonchi, tachypnea, wheezes Cardiovascular exam: PRESENT: RRR, +S1, +S2 Pulses: PRESENT: normal carotid pulses Vascular exam: PRESENT: normal capillary refill GI/Abdominal exam: PRESENT: normal bowel sounds, soft. ABSENT: distended, guarding, rebound, tenderness Extremities exam: ABSENT: clubbing, pedal edema Musculoskeletal exam: PRESENT: normal inspection. ABSENT: deformity Neurological exam: PRESENT: alert, awake, oriented to person, oriented to place, oriented to time, oriented to situation Results Laboratory Results: 08/06/19 04:05 08/03/19 05:07 08/06/19 04:05 WBC 9.1 RBC 4.47 Hgb 13.7 Hct 39.6 MCV 89 MCH 30.7 MCHC 34.6 RDW 13.6 Plt Count 244 Impressions: Venous Doppler Study 08/02/19 04:03 IMPRESSION: Evidence of acute deep vein thrombosis from the mid femoral vein to the posterior tibial vein. Evidence a superficial vein thrombosis left lower leg. Tibia/Fibula X-Ray 08/02/19 05:33 IMPRESSION: 1. No acute findings. Assessment and Plan - Diagnosis (1) DVT, popliteal, acute Qualifiers: Laterality: left Qualified Code(s): I82.432 - Acute embolism and thrombosis of left popliteal vein Is this a current diagnosis for this admission?: Yes Plan: He is currently on a heparin drip and being bridged to a therapeutic INR warfarin. His warfarin dose has been increased because his INR was not trending up like it should have. He tells me that he is going back to [place] after he leaves the hospital. He says that he has [facility] Medicaid, and I recommended to him that once he gets back there to go to a healthcare provider to see if he could get on Eliquis. (2) Tobacco abuse Is this a current diagnosis for this admission?: Yes Plan: Strongly encourage cessation - Time Time Spent with patient: 15-24 minutes
[2019-08-06] MEDS: WARFARIN SODIUM 5 MG TABLET PO SCH ×2 (21:23)
[2019-08-06] MEDS: ZOLPIDEM TARTRATE 5 MG TABLET PO PRN (22:27)
[2019-08-07] MEDS: OXYCODONE-ACETAMINOPHEN 5-325 MG TABLET PO PRN ×4 (00:25→18:13)
[2019-08-07] MEDS: HEPARIN SODIUM,PORCINE/D5W 25,000 UNIT/250 ML RTUINJ IV PRN ×2 (03:04→22:39)
[2019-08-07 04:56] LABS: INTERNATIONAL RATION (INR) 1.61; PROTHROMBIN TIME 19.3 SEC (11.4-15.4)
--- NOTE | 2019-08-07 16:59 | PDOC PROGRESS REPORT ---
Subjective Progress Note for:: 08/07/19 Subjective:: No adverse events overnight. He says that whenever he stands up he gets unbearable pain in his left leg. This is interesting considering that he has minimal swelling in the left leg compared to the right and is definitely improved over the past couple days. He is been eating and drinking without any difficulty. Reason For Visit: LEFT LOWER EXTREMITY DVT Physical Exam Vital Signs: Temp Pulse Resp BP Pulse Ox 98.3 F 83 16 145/84 H 97 08/07/19 15:41 08/07/19 15:41 08/07/19 15:41 08/07/19 15:41 08/07/19 15:41 Intake & Output 08/06/19 08/07/19 08/08/19 06:59 06:59 06:59 Intake Total 3105 3057 1016 Output Total 900 825 400 Balance 2205 2232 616 Weight 95.9 kg 98.3 kg General appearance: PRESENT: no acute distress, cooperative, disheveled Respiratory exam: PRESENT: clear to auscultation hussain, symmetrical, unlabored. ABSENT: accessory muscle use, chest wall tenderness, crackles, prolonged expiratory phas, rhonchi, tachypnea, wheezes Cardiovascular exam: PRESENT: RRR, +S1, +S2 Pulses: PRESENT: normal carotid pulses Vascular exam: PRESENT: normal capillary refill GI/Abdominal exam: PRESENT: normal bowel sounds, soft. ABSENT: distended, guarding, rebound, tenderness Extremities exam: PRESENT: Trace left ankle edema. ABSENT: clubbing, pedal ed hortensia Musculoskeletal exam: PRESENT: normal inspection. ABSENT: deformity Neurological exam: PRESENT: alert, awake, oriented to person, oriented to place, oriented to time, oriented to situation Results Laboratory Results: 08/06/19 04:05 08/03/19 05:07 08/02/19 07:20 Blood Blood Culture - Final NO GROWTH IN 5 DAYS 08/02/19 04:40 Blood Blood Culture - Final NO GROWTH IN 5 DAYS Impressions: Venous Doppler Study 08/02/19 04:03 IMPRESSION: Evidence of acute deep vein thrombosis from the mid femoral vein to the posterior tibial vein. Evidence a superficial vein thrombosis left lower leg. Tibia/Fibula X-Ray 08/02/19 05:33 IMPRESSION: 1. No acute findings. Assessment and Plan - Diagnosis (1) DVT, popliteal, acute Qualifiers: Laterality: left Qualified Code(s): I82.432 - Acute embolism and thrombosis of left popliteal vein Is this a current diagnosis for this admission?: Yes Plan: He is currently on a heparin drip and being bridged to a therapeutic INR warfarin. Warfarin dose was increased and his INR is trending up now. If he has another increase from today to tomorrow like he had from yesterday to today, he should be therapeutic and can possibly be discharged tomorrow. At that point he will have been on the heparin drip for 5 days along with the Coumadin. (2) Tobacco abuse Is this a current diagnosis for this admission?: Yes Plan: Strongly encourage cessation - Time Time Spent with patient: 15-24 minutes
[2019-08-07] MEDS: WARFARIN SODIUM 5 MG TABLET PO SCH ×2 (21:42)
[2019-08-07] MEDS: ZOLPIDEM TARTRATE 5 MG TABLET PO PRN (22:43)
[2019-08-08 04:59] LABS: INTERNATIONAL RATION (INR) 1.89
[2019-08-08] MEDS: HEPARIN SODIUM,PORCINE/D5W 25,000 UNIT/250 ML RTUINJ IV PRN (07:42)
[2019-08-08] MEDS: OXYCODONE-ACETAMINOPHEN 5-325 MG TABLET PO PRN (10:55)
[2019-08-08 14:41] VITALS: BP 123/66
--- NOTE | 2019-08-08 17:44 | PDOC DISCHARGE SUMMARY ---
Impression - Admit/DC Date/PCP Admission Date/Primary Care Provider: 08/04/19 16:09 Discharge Date: 08/08/19 - Discharge Diagnosis (1) DVT, popliteal, acute Is this a current diagnosis for this admission?: Yes (2) Tobacco abuse Is this a current diagnosis for this admission?: Yes - Additional Information Resuscitation Status: Full Code Discharge Diet: Regular Discharge Activity: Activity As Tolerated Referrals: [facility] [Outside] Prescriptions: Warfarin Sodium [Coumadin 5 mg Tablet] 10 mg PO QHS #30 tablet Warfarin Sodium [Coumadin 5 mg Tablet] 5 mg PO QHS #30 tablet Diclofenac Sodium [Voltaren 50 mg Tablet.] 50 mg PO BIDP PRN #30 tablet. PRN Reason: For Pain Home Medications: Diclofenac Sodium [Voltaren 50 mg Tablet.] 50 mg PO BIDP PRN #30 tablet. 08/08/19 Warfarin Sodium [Coumadin 5 mg Tablet] 5 mg PO QHS #30 tablet 08/08/19 Warfarin Sodium [Coumadin 5 mg Tablet] 10 mg PO QHS #30 tablet 08/08/19 History of Present Illiness History of Present Illness: RIC BANEGAS is a 48 year old male who presented to the ER with complaint of left lower extremity redness and swelling associated pain. Patient is noted this swelling been present for the last 2 to 3 days. Patient states it hurts more when he flexes or extends his left ankle showing a positive Homans sign. Patient had no treatment prior to arrival all activity is aggravating factor Hospital Course Hospital Course: He was put on a heparin drip and started on warfarin. We chose this because his [place] Medicaid does not cover them while he is here. He received 5 days of bridging therapy and his INR is supratherapeutic today. He was complaining about a lot of pain which was incongruent with my observations of him and also incongruent with his examination. He said when he leaves here he is going to go to back to [place]. He said he is leaving on Saturday. I told him that as soon as he gets home someone needs to check his INR. If he has any serious bleeding episodes he needs to seek medical attention at the closest location to where he is on that time during the trip. Strongly recommended that he quit smoking. I gave him a prescription for Voltaren and strongly encouraged him to take it only if needed, and that if he does he is to take it with food on his stomach. I also told him that as soon as he gets to [place] and gets his INR checked, he should talk to the provider that he sees about switching to a newer anticoagulant such as Eliquis or Xarelto that does not require monitoring, since his [place] Medicaid should cover it. His labs and examination were reassuring and he was discharged in good condition. Physical Exam Vital Signs: Temp Pulse Resp BP Pulse Ox 98.8 F 63 18 123/66 97 08/08/19 14:31 08/08/19 14:31 08/08/19 14:31 08/08/19 14:31 08/08/19 14:31 Intake & Output 08/07/19 08/08/19 08/09/19 06:59 06:59 06:59 Intake Total 3057 2219 521 Output Total 825 850 Balance 2232 1369 521 Weight 98.3 kg 99.2 kg General appearance: PRESENT: no acute distress, cooperative, disheveled Respiratory exam: PRESENT: clear to auscultation hussain, symmetrical, unlabored. ABSENT: accessory muscle use, chest wall tenderness, crackles, prolonged expiratory phas, rhonchi, tachypnea, wheezes Cardiovascular exam: PRESENT: RRR, +S1, +S2 Pulses: PRESENT: normal carotid pulses Vascular exam: PRESENT: normal capillary refill GI/Abdominal exam: PRESENT: normal bowel sounds, soft. ABSENT: distended, guarding, rebound, tenderness Extremities exam: PRESENT: Trace left ankle edema. ABSENT: clubbing, pedal edema Musculoskeletal exam: PRESENT: normal inspection. ABSENT: deformity Neurological exam: PRESENT: alert, awake, oriented to person, oriented to place, oriented to time, oriented to situation Results Laboratory Results: WBC 9.1 10^3/uL (4.0-10.5) 08/06/19 04:05 RBC 4.47 10^6/uL (4.35-5.55) 08/06/19 04:05 Hgb 13.7 g/dL (13.5-17.0) 08/06/19 04:05 Hct 39.6 % (37.9-51.0) 08/06/19 04:05 MCV 89 fl (80-97) 08/06/19 04:05 MCH 30.7 pg (27.0-33.4) 08/06/19 04:05 MCHC 34.6 g/dL (32.0-36.0) 08/06/19 04:05 RDW 13.6 % (11.5-14.0) 08/06/19 04:05 Plt Count 244 10^3/uL (150-450) 08/06/19 04:05 Lymph % (Auto) 16.8 % (13-45) 08/03/19 05:07 Wagoner % (Auto) 10.3 % (3-13) 08/03/19 05:07 Eos % (Auto) 2.2 % (0-6) 08/03/19 05:07 Baso % (Auto) 0.8 % (0-2) 08/03/19 05:07 Absolute Neuts (auto) 7.8 10^3/uL (1.7-8.2) 08/03/19 05:07 Absolute Lymphs (auto) 1.9 10^3/uL (0.5-4.7) 08/03/19 05:07 Absolute Monos (auto) 1.2 10^3/uL (0.1-1.4) 08/03/19 05:07 Absolute Eos (auto) 0.2 10^3/uL (0.0-0.6) 08/03/19 05:07 Absolute Basos (auto) 0.1 10^3/uL (0.0-0.2) 08/03/19 05:07 Seg Neutrophils % 69.9 % (42-78) 08/03/19 05:07 PT 22.0 SEC (11.4-15.4) H 08/08/19 04:05 INR 1.89 08/08/19 04:05 APTT 92.3 SEC (23.5-35.8) H 08/08/19 11:33 Sodium 134.4 mmol/L (137-145) L 08/03/19 05:07 Potassium 4.3 mmol/L (3.6-5.0) 08/03/19 05:07 Chloride 98 mmol/L (98-107) 08/03/19 05:07 Carbon Dioxide 27 mmol/L (22-30) 08/03/19 05:07 Anion Gap 9 (5-19) 08/03/19 05:07 BUN 15 mg/dL (7-20) 08/03/19 05:07 Creatinine 0.79 mg/dL (0.52-1.25) 08/03/19 05:07 Est GFR ( Amer) > 60 (>60) 08/03/19 05:07 Est GFR (MDRD) Non-Af > 60 (>60) 08/03/19 05:07 Glucose 113 mg/dL (75-110) H 08/03/19 05:07 Calcium 8.6 mg/dL (8.4-10.2) 08/03/19 05:07 Total Bilirubin 0.6 mg/dL (0.2-1.3) 08/02/19 04:40 Direct Bilirubin 0.1 mg/dL (0.0-0.4) 08/02/19 04:40 Neonat Total Bilirubin Not Reportable 08/02/19 04:40 Neonat Direct Bilirubin Not Reportable 08/02/19 04:40 Neonat Indirect Bili Not Reportable 08/02/19 04:40 AST 17 U/L (17-59) 08/02/19 04:40 ALT 15 U/L (<50) 08/02/19 04:40 Alkaline Phosphatase 59 U/L (38-126) 08/02/19 04:40 Total Protein 7.3 g/dL (6.3-8.2) 08/02/19 04:40 Albumin 4.2 g/dL (3.5-5.0) 08/02/19 04:40 Urine Color YELLOW 08/05/19 03:58 Urine Appearance CLEAR 08/05/19 03:58 Urine pH 6.0 (5.0-9.0) 08/05/19 03:58 Ur Specific [place] 1.012 08/05/19 03:58 Urine Protein NEGATIVE mg/dL (NEGATIVE) 08/05/19 03:58 Urine Glucose (UA) NEGATIVE mg/dL (NEGATIVE) 08/05/19 03:58 Urine Ketones NEGATIVE mg/dL (NEGATIVE) 08/05/19 03:58 Urine Blood NEGATIVE (NEGATIVE) 08/05/19 03:58 Urine Nitrite NEGATIVE (NEGATIVE) 08/05/19 03:58 Urine Bilirubin NEGATIVE (NEGATIVE) 08/05/19 03:58 Urine Urobilinogen NEGATIVE mg/dL (<2.0) 08/05/19 03:58 Ur Leukocyte Esterase NEGATIVE (NEGATIVE) 08/05/19 03:58 Urine WBC (Auto) 0 /HPF 08/05/19 03:58 Urine RBC (Auto) 0 /HPF 08/05/19 03:58 U Hyaline Cast (Auto) 1 /LPF 08/03/19 10:50 Squamous Epi Cells Auto <1 /HPF 08/05/19 03:58 Urine Mucus (Auto) RARE /LPF 08/05/19 03:58 Urine Ascorbic Acid NEGATIVE (NEGATIVE) 08/05/19 03:58 Stl Occult Blood (ICT) NEGATIVE (NEGATIVE) 08/05/19 18:20 Impressions: Venous Doppler Study 08/02/19 04:03 IMPRESSION: Evidence of acute deep vein thrombosis from the mid femoral vein to the posterior tibial vein. Evidence a superficial vein thrombosis left lower leg. Tibia/Fibula X-Ray 08/02/19 05:33 IMPRESSION: 1. No acute findings. Plan Time Spent: Greater than 30 Minutes Stroke Is this a Stroke Patient?: No Acute Heart Failure - Is this a Heart Failure Patient?: No
--- NOTE | 2019-08-11 11:22 | Progress Note Acknowledgement ---
Progress Note Acknowledgement Progess Note Acknowledgement: I, the undersigned member of the medical staff with appropriate privileges and with supervisory authority over [Fernando Madera], a dependent practice allied health professional, acknowledge that I have reviewed the progress notes entered on this patient, and in my professional judgment believe that the assessment made and/or any care evidenced was appropriate
== END 2019-08-08 15:40 | disposition home or self-care (01) | DRG 301 ==
LOC: ER 23:00 → OBSVTOIN 08-02 10:23 → EH 08-02 10:23 → INTOOBSV 08-02 10:23 → 4S 08-02 12:51 → OBSVTOIN 08-04 16:09
PROVIDERS: ADMIT Family Medicine; ATTEND Internal Medicine
DX: I82.432 Acute embolism and thrombosis of left popliteal vein (principal); I82.412 Acute embolism and thrombosis of left femoral vein; F12.10 Cannabis abuse, uncomplicated; F17.210 Nicotine dependence, cigarettes, uncomplicated
CPT/HCPCS: 36415; 80048; 80053; 81001; 82272; 85025; 85027; 85610; 85730; 87040; 93971; 96365; 96375; 96376; 99285; G0378; J1170; J1644; J2060; J3010; J3490